=== PATIENT | male | born 1975 | race Caucasian/White ===

== ENCOUNTER 2017-11-25 09:43 | Day surgery (SDC) | payer BC ==
[2017-11-19 14:19] VITALS: BMI 25.7
[~2017-11-25 09:43] MED LIST: LACTATED RINGERS 1,000 ML IV SCH
[2017-11-25 10:12] VITALS: RESP 16; TEMP 97.8
[2017-11-25] MEDS ORDERED: LIDOCAINE 1% 20 ML VIAL (10MG/ML) FOR IV START INTRADERMA ONE (10:12)
[2017-11-25] MEDS ORDERED: LIDOCAINE 1% INJ 10MG/ML (20 ML MDV) ONE (11:03)
[2017-11-25] MEDS ORDERED: PROPOFOL 10 MG/ML 20 ML VIAL IV ONE (11:03)
--- NOTE | 2017-11-25 11:36 | P.PCN ---
Date of Procedure: 11/25/17 Procedure(s) Performed: Procedure: Esophagogastroduodenoscopy and biopsy. Preoperative diagnosis: Dysphagia. Postoperative diagnosis: 1. Very small sliding hiatal hernia with no obvious esophagitis or complicated reflux disease. 2. Mild antral gastritis. 3. Multiple biopsies obtained from the duodenum, antrum and esophagus. Preparation sedation: Was provided by anesthesia. Brief clinical history: The patient is a 42-year-old male who was scheduled for this evaluation because of solid food dysphagia, including episodes of obstructive dysphagia requiring him to bring the food back up, that he has been experiencing for the last year or so. The patient has history of hayfever and other ALLERGIES. He has taken H2 blockers [id number] for the last year but has felt more improved when over the last few weeks after he was started on Prilosec. No unintentional weight loss or other alarm symptoms. Procedure: With the patient on his left lateral decubitus position and after informed consent and adequate sedation, I passed the Olympus-GIF 160 video upper endoscope through the cricopharyngeus down the esophagus. GE junction was around 43 cm from the incisors and there was a very small sliding hiatal hernia with no obvious esophagitis or complicated reflux disease. I did not see any corrugations or other features to suggest eosinophilic esophagitis. The endoscope was then passed into the stomach which was insufflated with air and inspected in detail including the retroflex view in the cardia. There was minimal mottling and erythema in the antrum but no ulcers or erosions. Pyloric channel, duodenal bulb, which bulbar area and descending duodenum appeared within normal limits. Because of his symptoms, I obtained biopsies from the duodenum, antrum and esophagus then the endoscope was withdrawn. The patient tolerated the procedure well. Plan: The patient was reassured. Will await biopsy results and make further recommendations. It is still possible that could be dealing with eosinophilic esophagitis in light of his history despite absence of endoscopic findings. Motility disorder is to be kept in mind. I will see him in follow-up in the office and make additional recommendations. I will keep you updated on his progress.
[2017-11-25 12:14] VITALS: BP 145/95; PULSE 70
== END 2017-11-25 12:20 | disposition home or self-care (01) ==
LOC: ORWHC2ENDO 09:43
DX: K29.50 Unspecified chronic gastritis without bleeding (principal); K21.0 Gastro-esophageal reflux disease with esophagitis; R13.10 Dysphagia, unspecified; K44.9 Diaphragmatic hernia without obstruction or gangrene; I25.10 Atherosclerotic heart disease of native coronary artery without angina pectoris; I10 Essential (primary) hypertension; E78.5 Hyperlipidemia, unspecified; Z79.82 Long term (current) use of aspirin; Z79.899 Other long term (current) drug therapy
CPT/HCPCS: 88305; 43239; J2001; J2704

== ENCOUNTER → 2018-01-12 | Outpatient (CLI) | payer BC ==
--- NOTE | 2018-01-12 10:17 | FL ---
EXAMINATION TYPE: FL barium swallow DATE OF EXAM: 01/12/2018 CLINICAL HISTORY: Distal esophageal dysphagia TECHNIQUE: A double contrast esophagram is performed utilizing air and barium. A total of 1 minute and 29 seconds of fluoroscopic time was utilized during procedure. 31 fluoroscopic images were saved during the examination. COMPARISON: None FINDINGS: There is proximal and mid esophageal dilatation with narrowing at the gastroesophageal junc tion. There is beaking at this location with eventual passage of contrast through the gastroesophagea l junction delayed passage and propulsion results in few tertiary contractions on upright imaging in the gravity dependent position and moderate grade intraesophageal reflux to the midthoracic level. N o evidence of hiatal area. No significant gastroesophageal reflux was seen during real time performan ce of this study. The gravity independent portion of the examination was omitted given the large amou nt retained contrast and concern for potential aspiration. This was discussed with the patient as wel l as aspiration precautions at home. IMPRESSION: 1. Findings suggesting achalasia versus pseudoachalasia. Given the recent unremarkable endoscopy foc al stricture is excluded at the gastroesophageal junction. Correlate with manometry if performed on t he prior endoscopy. 2. Moderate grade intraesophageal reflux and few tertiary contractions as a consequence of the above findings.
== END | disposition home or self-care (01) ==
LOC: RADFLWHC 08:36
DX: K21.9 Gastro-esophageal reflux disease without esophagitis (principal)
CPT/HCPCS: 74220

== ENCOUNTER → 2018-02-09 | Day surgery (SDC) | payer BC ==
[2018-02-04 11:29] VITALS: BMI 25.7
[2018-02-09 10:32] VITALS: BP 125/81; PULSE 56; RESP 16; TEMP 98
--- NOTE | 2018-04-24 19:17 | PCN ---
PROCEDURE NOTE DATE OF THIS PROCEDURE: February 09, 2018. PROCEDURE PERFORMED: High resolution impedance manometry HRM. PREOPERATIVE DIAGNOSIS: Dysphagia. BRIEF CLINICAL HISTORY: The patient is a 42-year-old male who is evaluated for symptoms of dysphagia that has been going on for almost 1 year. An upper endoscopy performed November 25, 2017 revealed microscopic esophagitis despite therapy with Zantac for 1 years and omeprazole for a few weeks before the procedure. The patient did not have features of eosinophilic esophagitis. A barium swallow was performed January 12, 2018, and those findings were suggestive of achalasia versus pseudoachalasia. There was proximal and mid esophageal dilation with narrowing at the gastroesophageal junction with beaking at that location with eventual passage of the contrast through the gastroesophageal junction. Delayed passage resulted in few tertiary contractions in the upright images and there was moderate grade intraesophageal reflux to the mid thoracic level. This evaluation is scheduled to further define the possibility of a motility disorder. DESCRIPTION OF THE PROCEDURE: After informed consent, the patient was taken to the motility GI unit and the procedure was performed by the endo nurse. The esophageal manometry solid state catheter was introduced through the external os of the nostril and was gently advanced into the stomach. The study was performed using both viscous and liquid swallows. The [place] classification using standard high-resolution impedance manometry was used with wave form including Romario view. FINDINGS: 1. The integrated relaxation pressure IRP was 31 mm Hg, (normal is less or equal to 20). The distal contractile integral DCI was 1074 mmHg per second per cm, ( normal between 450 and 8000). 2. Impedance showed complete transit for liquid swallows at 20%. (Normal is more than 80) and complete for viscous swallows at 20%. (Normal more than 70). 3. Romario view waveforms with reviewed. 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 With the patient having had an upper endoscopy and a barium study already, the possibility of achalasia should remain in the differential diagnosis and clinical correlation should be considered. MMODL / IJN: [id number] / MTDD
== END ==
LOC: ORWHC2ENDO 10:07
DX: R13.10 Dysphagia, unspecified (principal)
CPT/HCPCS: 91010

== ENCOUNTER 2022-11-30 05:42 | Emergency (ER) | payer BC ==
[2022-11-30] MEDS ORDERED: ASPIRIN 81 MG PO STA (05:59)
[2022-11-30 06:24] LABS: Basophils % (A) 0 %; Eosinophils # (A) 0.3 k/uL (0-0.7); Eosinophils % (A) 3 %; HCT 46.6 % (39.0-53.0); HGB 15.1 gm/dL (13.0-17.5); Lymphocytes # (A) 1.4 k/uL (1.0-4.8); Lymphocytes % (A) 15 %; MCH 30.1 pg (25.0-35.0); MCHC 32.5 g/dL (31.0-37.0); MCV 92.6 fL (80.0-100.0); Mean Platelet Volume 7.3; Monocytes # (A) 0.7 k/uL (0-1.0); Monocytes % (A) 7 %; Neutrophils # (A) 6.5 k/uL (1.3-7.7); Neutrophils % (A) 73 %; Platelet Count 231 k/uL (150-450); RBC 5.04 m/uL (4.30-5.90); RDW 12.2 % (11.5-15.5)
[2022-11-30 06:33] LABS: ALT 24 U/L (4-49); AST 26 U/L (17-59); African American GFR (CKD) >90 (>60 ml/min/1.73 sqM); Albumin 4.7 g/dL (3.5-5.0); Alkaline Phosphatase 67 U/L (38-126); Anion Gap 8 mmol/L; Blood Urea Nitrogen 12 mg/dL (9-20); Calcium 9.8 mg/dL (8.4-10.2); Carbon Dioxide 27 mmol/L (22-30); Chloride 105 mmol/L (98-107); Glucose 110 mg/dL (74-99); Non-African American GFR(CKD) 88 (>60 ml/min/1.73 sqM); Potassium 4.1 mmol/L (3.5-5.1); Sodium 140 mmol/L (137-145); Total Bilirubin 0.7 mg/dL (0.2-1.3); Total Protein 8.2 g/dL (6.3-8.2)
[2022-11-30 06:41] LABS: NT-Pro-B-Type Natriuretic Pept 392 pg/mL
[2022-11-30 06:51] LABS: INR 0.9 (<1.2); Partial Thromboplastin Time 26.9 sec (22.0-30.0)
--- NOTE | 2022-11-30 07:17 | XR ---
EXAMINATION TYPE: XR chest 2V DATE OF EXAM: 11/30/2022 COMPARISON: NONE HISTORY: Chest pain TECHNIQUE: Frontal and lateral views of the chest are obtained. FINDINGS: There is no focal air space opacity. No evidence for pneumothorax. No pleural effusion. The cardiac silhouette size is within normal limits. The osseous structures are grossly intact. IMPRESSION: 1. No acute cardiopulmonary process.
[2022-11-30 07:40] VITALS: BP 139/83; PULSE 82; RESP 18; TEMP 98.7
--- NOTE | 2022-11-30 07:42 | ED ---
Chest Pain HPI - General Chief Complaint: Chest Pain Stated Complaint: Chest Pain Time Seen by Provider: 11/30/22 05:59 Source: patient, RN notes reviewed Mode of arrival: ambulatory Limitations: no limitations - History of Present Illness Initial Comments: This a 47-year-old male presents emergency Department chief complaint of chest pain. Patient states certain preformed 5 AM this morning. Patient states left- sided pleuritic in nature. Patient states that he does have known cardiomyopathy states that he is on metoprolol. Patient states he's been told he has hypertension. Patient had a heart cath 6 years ago which was unremarkable at that time. Patient has meant to reflux, cough and reflux but denies any cough or cold symptoms no fevers or chills denies any nausea vomiting diarrhea constipation no diaphoretic episodes. - Related Data Home Medications Medication Instructions Recorded Confirmed Cetirizine HCl [Zyrtec] 10 mg PO DAILY 11/12/14 02/09/18 Aspirin [Adult Low Dose Aspirin EC] 81 mg PO DAILY 11/19/17 02/09/18 Metoprolol Succinate [Toprol XL] 50 mg PO BID 11/19/17 02/09/18 Omeprazole [PriLOSEC] 40 mg PO DAILY 11/19/17 02/09/18 Previous Rx's Medication Instructions Recorded EPINEPHrine [Epipen 2-Tone] 0.3 mg IM ONCE PRN #2 ml 11/12/14 Allergies Allergy/AdvReac Type Severity Reaction Status Date / Time venom-honey bee Allergy Swelling Verified 11/30/22 05:47 [bee venom (honey bee)] Review of Systems ROS Statement: Those systems with pertinent positive or pertinent negative responses have been documented in the HPI. ROS Other: All systems not noted in ROS Statement are negative. EKG Findings - EKG Comments: EKG Findings:: EKG performed at 6:00 sinus rhythm with rate of 90. 169 QS 99 QT/QTC 339/[address] changes in leads 1, 2 aVL, V4 through V6 - EKG Results: EKG: interpreted by ESTELA Past Medical History Past Medical History: Chest Pain / Angina, GERD/Reflux, Hypertension Additional Past Medical History / Comment(s): DIFFICULTY SWALLOWING History of Any Multi-Drug Resistant Organisms: None Reported Past Surgical History: Heart Catheterization, Orthopedic Surgery Additional Past Surgical History / Comment(s): left hand SX Past Anesthesia/Blood Transfusion Reactions: No Reported Reaction Past Psychological History: No Psychological Hx Reported Past Alcohol Use History: Occasional Past Drug Use History: None Reported - Past Family History Mother Family Medical History: No Reported History General Exam Limitations: no limitations General appearance: alert, in no apparent distress Head exam: Present: atraumatic, normocephalic, normal inspection Eye exam: Present: normal appearance, PERRL, EOMI. Absent: scleral icterus, conjunctival injection, periorbital swelling ENT exam: Present: normal exam, normal oropharynx, mucous membranes moist Neck exam: Present: normal inspection, full ROM. Absent: tenderness, meningismus, lymphadenopathy Respiratory exam: Present: normal lung sounds bilaterally. Absent: respiratory distress, wheezes, rales, rhonchi, stridor Cardiovascular Exam: Present: regular rate, normal rhythm, normal heart sounds. Absent: systolic murmur, diastolic murmur, rubs, gallop, clicks GI/Abdominal exam: Present: soft, normal bowel sounds. Absent: distended, tenderness, guarding, rebound, rigid Course Vital Signs 11/30/22 11/30/22 11/30/22 05:43 07:10 07:38 Temperature 98.9 F 98.7 F Pulse Rate 97 81 82 Respiratory 18 16 18 Rate Blood Pressure 152/89 129/81 139/83 O2 Sat by Pulse 98 98 97 Oximetry Chest Pain MDM - MDM Was pt. sent in by a medical professional or institution (Dr. PA, LASER BEAM TRIM OPERATOR, urgent care, hospital, or usp...) When possible be specific @ -No Did you speak to anyone other than the patient for history (EMS, parent, family, police, friend...)? What history was obtained from this source @ -No Did you review nursing and triage notes (agree or disagree)? Why? @ -I reviewed and agree with nursing and triage notes Were old charts reviewed (outside hosp., previous admission, EMS record, old EKG, old radiological studies, urgent care reports/EKG's, usp records)? Report findings @ -No old charts were reviewed Differential Diagnosis (chest pain, altered mental status, abdominal pain women, abdominal pain men, vaginal bleeding, weakness, fever, dyspnea, syncope, headache, dizziness, GI bleed, back pain, seizure, CVA, palpatations, mental health, musculoskeletal)? @ -nDifferential Chest Pain: Stable Angina, Unstable Angina, STEMI, NSTEMI Aortic Dissection, Pneumothorax, Musculoskeletal, Esophageal Spasm GERD, Cholecystitis, Pancreatitis, Zoster, this is not meant to be an all-inclusive list. le EKG interpreted by me (3pts min.). @ -As above X-rays interpreted by me (1pt min.). @ -Chest x-ray shows no acute cardio pulmonary process CT interpreted by me (1pt min.). @ -None done U/S interpreted by me (1pt. min.). @ -None done What testing was considered but not performed or refused? (CT, X-rays, U/S, labs)? Why? @ -None What meds were considered but not given or refused? Why? @ -None Did you discuss the management of the patient with other professionals (professionals i.e. , PA, LASER BEAM TRIM OPERATOR, lab, RT, psych nurse, social science research assistant, sanitation manager, teacher, chief administrative officer, supervisor case loading)? Give summary @ -No Was smoking cessation discussed for >3mins.? @ -No Was critical care preformed (if so, how long)? @ -No Were there social determinants of health that impacted care today? How? (Homelessness, low income, unemployed, alcoholism, drug addiction, transportation, low edu. Level, literacy, decrease access to med. care, prison, rehab)? @ -No Was there de-escalation of care discussed even if they declined (Discuss DNR or withdrawal of care, Hospice)? DNR status @ -No What co-morbidities impacted this encounter? (DM, HTN, Smoking, COPD, CAD, Cancer, CVA, ARF, Chemo, Hep., AIDS, mental health diagnosis, sleep apnea, morbid obesity)? @ -Cardiomyopathy, hypertension Was patient admitted / discharged? Hospital course, mention meds given and route, prescriptions, significant lab abnormalities, going to OR and other pertinent info. @ -Discharged patient's was recommended to be admitted given patient's cardiac risk factors, patient stating that symptoms have resolved and he does not want to be admitted he does understand the risk of leaving. Patient's cardiac enzymes negative, negative d-dimer, negative x-ray. Patient recommended to me return for symptoms return Undiagnosed new problem with uncertain prognosis? @ -No Drug Therapy requiring intensive monitoring for toxicity (Heparin, Nitro, Insulin, Cardizem)? @ -No Were any procedures done? @ -No Diagnosis/symptom? @ -Chest pain Acute, or Chronic, or Acute on Chronic? @ -[Acute Uncomplicated (without systemic symptoms) or Complicated (systemic symptoms)? @ -[, Complicated Side effects of treatment? @ -No Exacerbation, Progression, or Severe Exacerbation? @ -No] Poses a threat to life or bodily function? How? (Chest pain, [place], [place], pneumonia, PE, COPD, DKA, ARF, appy, cholecystitis, CVA, Diverticulitis, Homicidal, Suicidal, threat to staff... and all critical care pts) @ -[No] Disposition Clinical Impression: Chest pain Disposition: HOME SELF-CARE Condition: Stable Instructions (If sedation given, give patient instructions): Chest Pain (ED) Additional Instructions: Please return to the Emergency Department if symptoms worsen or any other concerns. Is patient prescribed a controlled substance at d/c from ED?: No Referrals: Chris Castanon MD [Primary Care Provider] - 1-2 days Time of Disposition: 07:57
== END 2022-11-30 08:15 | disposition home or self-care (01) ==
LOC: EC 05:42
DX: R07.89 Other chest pain (principal); I10 Essential (primary) hypertension; K21.9 Gastro-esophageal reflux disease without esophagitis; Z79.82 Long term (current) use of aspirin; Z79.899 Other long term (current) drug therapy; Z91.030 Bee allergy status
CPT/HCPCS: 36415; 71046; 80053; 83735; 83880; 84484; 85025; 85379; 85610; 85730; 93005; 99285